=== PATIENT | female | born 1970 | race Caucasian/White ===

== ENCOUNTER 2020-01-25 09:33 | Outpatient (CLI) | payer OTHER, SELFPAY ==
--- NOTE | ~2020-01-25 | CT_ITS ---
EXAMINATION: CT abdomen pelvis wo con DATE: 01/25/2020 10:09 INDICATION: Bilateral flank pain. Gross hematuria. TECHNIQUE: Computed tomography (CT) of the abdomen and pelvis was performed without intravenous contr ast. Automated exposure control and iterative reconstruction technique were employed. The dose-length product was 1338.94 mGy-cm. COMPARISON: None FINDINGS: Lung bases are clear. Visualized portion heart appears normal. No pericardial or pleural effusion. Di ffuse hepatic steatosis. Gallbladder, spleen, pancreas and bilateral adrenal glands are normal. Kidne ys and ureters are normal with no urolithiasis, hydroureteronephrosis or perinephric/ureteral strandi ng. Bladder, anteverted uterus and bilateral adnexa are normal. Bowels including the appendix are nor mal. Postoperative changes along the infraumbilical anterior pelvic wall. Severe facet osteoarthritis on the right at L4-L5 and L5-S1. Otherwise mild scattered degenerative skeletal changes. IMPRESSION: 1. No acute intra-abdominal/pelvic process. Specifically no urolithiasis or other evident etiology fo r reported flank pain and hematuria. Reviewed, dictated and finalized at location A. IMPRESSION: 1. No acute intra-abdominal/pelvic process. Specifically no urolithiasis or oth er evident etiology for reported flank pain and hematuria.
--- NOTE | ~2020-01-25 | XR_ITS ---
XR abdomen/kub 1V 01/25/2020 09:55 Indication: Bilateral flank pain Procedure: KUB Comparison: No prior studies for comparison. Findings: Bowel gas pattern is nonobstructive. No suspected urolithiasis. There are changes of ventra l abdominal wall hernia repair in the lower abdomen. No acute osseous abnormality. Impression: 1: No acute abdominal abnormality. Reviewed, dictated and finalized at location A. Impression: 1: No acute abdominal abnormality.
== END 2020-01-25 09:34 | disposition home or self-care (01) ==
PROVIDERS: Visit Provider Urology
DX: R10.9 Unspecified abdominal pain (principal)
CPT/HCPCS: 74018; 74176

== ENCOUNTER → 2022-01-02 10:42 | Outpatient (CLI) | payer OTHER, SELFPAY ==
--- NOTE | ~2022-01-02 | MM_ITS ---
EXAMINATION: MM screening [facility] w [facility] HISTORY: Screening TECHNIQUE: Craniocaudal and mediolateral oblique 3-D tomosynthesis images were obtained and synthetic 2-D images were generated. CAD analysis was submitted and interpreted. COMPARISON: No prior mammogram is available for comparison at this institution. BREAST PARENCHYMAL COMPOSITION: Breast composed of scattered areas of fibroglandular density FINDINGS: There is a focal superficial mass in the lower inner quadrant of the right breast near the nipple. There is a focal asymmetry posterior to the nipple on the left CCA image, not identified on M LO or exaggerated CC view. IMPRESSION: 1. Small right breast mass and focal left breast asymmetry. 2. Additional mammographic views and possible breast ultrasound are recommended. BI-RADS Category 0: Incomplete: Needs additional imaging evaluation. Reviewed, dictated and finalized at location A. IMPRESSION: 1. Small right breast mass and focal left breast asymmetry. 2. Additional mammographic views and possible breast ultrasound are recommended . BI-RADS Category 0: Incomplete: Needs additional imaging evaluation.
== END ==
PROVIDERS: PCP Obstetrics & Gynecology; Visit Provider Obstetrics & Gynecology
DX: Z12.31 Encounter for screening mammogram for malignant neoplasm of breast (principal); R92.8 Other abnormal and inconclusive findings on diagnostic imaging of breast
CPT/HCPCS: 77063; 77067

== ENCOUNTER 2022-01-20 09:23 | Outpatient (CLI) | payer OTHER, SELFPAY ==
--- NOTE | ~2022-01-20 | MMUS_ITS ---
EXAMINATION: MM diagnostic [facility] w [facility], US breast RT limited, US breast LT complete HISTORY: Focal right periareolar breast mass and focal asymmetric density posterior to the nipple on left CC view of 01/02/2022 screening mammogram examination TECHNIQUE: Additional 3-D tomosynthesis images of both breasts were performed and synthetic 2-D image s were generated. CAD analysis was submitted and interpreted. High resolution right subareolar and le ft complete breast ultrasound including all 4 left breast quadrants and subareolar area was performed . COMPARISON: 01/02/2022 bilateral screening mammogram FINDINGS: MAMMOGRAPHIC FINDINGS: Right breast: There is focal asymmetric density in the medial subareolar area of the right breast. Subareolar right breast ultrasound examination was performed. Left breast: Multiple 7 mm or smaller circumscribed opacities are noted in the central third of the upper and lowe r left breast. Complete left breast ultrasound examination was performed. ULTRASOUND: Right breast: There is a 4 x 5.3 mm circumscribed solid lesion with mildly irregular margins and adjacent vasculari ty in the anterior 3:00 subareolar area of the right breast. This lesion is suspicious. Biopsy is rec ommended. Left breast: 1:00 subareolar area: Oval parallel circumscribed 3.7 x 5.9 x 3.8 mm sonolucency with through transmi ssion and no true internal vascularity, probably benign; six-month targeted follow-up is recommended at this location.. 1:00 8.5 cm from nipple: Parallel circumscribed septated cystic approximately 1.5 x 6.5 mm lesion wit hout internal vascularity or posterior shadowing, benign in appearance. IMPRESSION: 1. Suspicious approximately right 3:00 subareolar 4 x 5 mm irregular solid lesion; ultrasound-guided biopsy is recommended 2. Probable benign left 1:00 subareolar 5.9 mm lesion; six-month targeted left breast ultrasound foll ow-up is recommended Right breast: BI-RADS category 4, suspicious findings.; Ultrasound-guided biopsy of 3:00 subareolar l esion is recommended BI-RADS category 3: Probably benign; six-month targeted left breast 1:00 subareolar ultrasound follo w-up is recommended Dr. Brown telephoned the report and right breast ultrasound guided biopsy recommendation on 01/20/2022 a t 1127 hours to Nurse Sharon Reviewed, dictated and finalized at location A. IMPRESSION: 1. Suspicious approximately right 3:00 subareolar 4 x 5 mm irregular solid lesi on; ultrasound-guided biopsy is recommended 2. Probable benign left 1:00 subareolar 5.9 mm lesion; six-month targeted left breast ultrasound follow-up is recommended Right breast: BI-RADS category 4, suspicious findings.; Ultrasound-guided biops y of 3:00 subareolar lesion is recommended BI-RADS category 3: Probably benign; six-month targeted left breast 1:00 subar eolar ultrasound follow-up is recommended Dr. Brown telephoned the report and right breast ultrasound guided biopsy recomm endation on 01/20/2022 at 1127 hours to Nurse Herrera IMPRESSION: 1. Suspicious approximately right 3:00 subareolar 4 x 5 mm irregular solid lesi on; ultrasound-guided biopsy is recommended 2. Probable benign left 1:00 subareolar 5.9 mm lesion; six-month targeted left breast ultrasound follow-up is recommended Right breast: BI-RADS category 4, suspicious findings.; Ultrasound-guided biops y of 3:00 subareolar lesion is recommended BI-RADS category 3: Probably benign; six-month targeted left breast 1:00 subar eolar ultrasound follow-up is recommended Dr. Brown telephoned the report and right breast ultrasound guided biopsy recomm endation on 01/20/2022 at 1127 hours to Nurse Sharon CRABTREE
== END 2022-01-20 09:24 ==
PROVIDERS: Visit Provider Obstetrics & Gynecology
DX: R92.8 Other abnormal and inconclusive findings on diagnostic imaging of breast (principal)
CPT/HCPCS: 76641; 76642; 77062; 77066; G0279

== ENCOUNTER → 2022-05-15 09:13 | Outpatient (CLI) | payer OTHER, SELFPAY ==
--- NOTE | ~2022-05-15 | MMUS_ITS ---
EXAMINATION: MM diagnostic [facility] w [facility], US breast RT complete HISTORY: Breast pain. Previous benign biopsies. TECHNIQUE: Additional 3-D tomosynthesis images of the breasts were performed and synthetic 2-D images were generated. CAD analysis was submitted and interpreted. High resolution complete right breast ul trasound was performed. COMPARISON: Comparison to multiple prior studies sequentially, with oldest reviewed study dated 01/2021. BREAST PARENCHYMAL COMPOSITION: Breast composed of scattered areas of fibroglandular density FINDINGS: MAMMOGRAPHIC FINDINGS: There are no suspicious masses, calcifications or architectural distortion in either breast to sugges t malignancy. There are small superficial nodules containing biopsy coils in the right breast anterio rly near the nipple, previously biopsy-proven benign. ULTRASOUND: Limited right breast ultrasound: At 3:00 near the areola there is a 6 mm cyst containing an internal echogenic foci, corresponding to biopsy marker seen on mammography. There is a 4 mm cyst at 8:00, 0.5 cm from the nipple. No suspicious masses in the right breast to suggest malignancy. IMPRESSION: 1. No evidence for malignancy in either breast. 2. Routine yearly screening mammogram and regular clinical breast examination are recommended. BI-RADS Category 2: Benign finding(s). Reviewed, dictated and finalized at location A. IMPRESSION: 1. No evidence for malignancy in either breast. 2. Routine yearly screening mammogram and regular clinical breast examination a re recommended. BI-RADS Category 2: Benign finding(s).
== END ==
PROVIDERS: PCP Obstetrics & Gynecology
DX: R92.8 Other abnormal and inconclusive findings on diagnostic imaging of breast (principal)
CPT/HCPCS: 76641; 77062; 77066; G0279

== ENCOUNTER → 2023-03-09 11:47 | Outpatient (CLI) | payer OTHER, SELFPAY ==
--- NOTE | ~2023-03-09 | MM_ITS ---
EXAMINATION: MM screening [facility] BI w [facility] HISTORY: Screening mammogram TECHNIQUE: Craniocaudal and mediolateral oblique 3-D tomosynthesis images were obtained and synthetic 2-D images were generated. CAD analysis was submitted and interpreted. COMPARISON: 05/15/2022 diagnostic bilateral mammogram and complete right breast ultrasound 01/20/2022 diagnostic bilateral mammogram, Limited right and complete left breast ultrasound examinatio n BREAST PARENCHYMAL COMPOSITION: There are scattered areas of fibroglandular density. FINDINGS: There is no evidence of suspicious mass, calcification, or architectural distortion to sugg est malignancy in either breast. There has been no suspicious interval change. IMPRESSION: 1. No mammographic evidence of malignancy. 2. Recommend routine screening mammography in one year. BI-RADS Category 1: Negative Reviewed, dictated and finalized at location C.
== END ==
PROVIDERS: PCP Obstetrics & Gynecology; Visit Provider Obstetrics & Gynecology
DX: Z12.31 Encounter for screening mammogram for malignant neoplasm of breast (principal)
CPT/HCPCS: 77063; 77067

== ENCOUNTER 2024-03-24 10:23 | Outpatient (CLI) | payer OTHER, SELFPAY ==
--- NOTE | ~2024-03-24 | MM_ITS ---
EXAMINATION: MM screening [facility] BI w [facility]ara HISTORY: Screening mammogram TECHNIQUE: Craniocaudal and mediolateral oblique 3-D tomosynthesis images were obtained and synthetic 2-D images were generated. CAD analysis was submitted and interpreted. COMPARISON: 03/09/2023, 05/15/2022, 01/20/2022, 01/02/2022, 11/22/2020 BREAST PARENCHYMAL COMPOSITION:Not Dense. The breasts are almost entirely fatty FINDINGS: No suspicious mass, calcification, or architectural distortion are identified in either jesse ast to suggest malignancy. There has been no suspicious interval change. IMPRESSION: No mammographic evidence of malignancy. Recommend routine screening mammography in one year. BI-RADS Category 1: Negative Reviewed, dictated and finalized at location .
== END 2024-03-24 10:24 ==
PROVIDERS: PCP Obstetrics & Gynecology; Visit Provider Obstetrics & Gynecology
DX: Z12.31 Encounter for screening mammogram for malignant neoplasm of breast (principal)
CPT/HCPCS: 77063; 77067

== ENCOUNTER 2025-07-13 14:35 | Outpatient (CLI) | payer OTHER, SELFPAY ==
--- NOTE | ~2025-07-13 | MM_ITS ---
EXAMINATION: MM screening [facility] BI w [facility] HISTORY: Screening TECHNIQUE: Craniocaudal and mediolateral oblique 3-D tomosynthesis images were obtained and synthetic 2-D images were generated. CAD analysis was submitted and interpreted. COMPARISON: Comparison to multiple prior studies sequentially, with oldest reviewed study dated 11/22/2020. BREAST PARENCHYMAL COMPOSITION: Not Dense: The breasts are almost entirely fatty. FINDINGS: There is no evidence of suspicious mass, calcification, or architectural distortion to suggest malignancy in either breast. There has been no suspicious interval change. IMPRESSION: 1. No mammographic evidence of malignancy. 2. Recommend routine screening mammography in one year. BI-RADS Category 1: Negative Reviewed, dictated and finalized at location O.
== END 2025-07-13 14:36 | disposition home or self-care (01) ==
PROVIDERS: PCP Obstetrics & Gynecology; Visit Provider Obstetrics & Gynecology
DX: Z12.31 Encounter for screening mammogram for malignant neoplasm of breast (principal)
CPT/HCPCS: 77063; 77067